=== PATIENT | male | born 1955 | race Caucasian/White ===

== ENCOUNTER 2023-10-30 13:08 | Outpatient (CLI) | payer MEDICARE, SELFPAY | END 2023-10-30 13:09 | disposition home or self-care (01) | PROVIDERS: PCP Family Medicine; Visit Provider Physician Assistant Medical | DX: I10 Essential (primary) hypertension (principal); E78.5 Hyperlipidemia, unspecified; R53.83 Other fatigue; Z11.4 Encounter for screening for human immunodeficiency virus [HIV]; B19.20 Unspecified viral hepatitis C without hepatic coma | CPT/HCPCS: 80053; 80061; 82306; 82607; 82728; 84443; 86592; 86703; 86706; 86803; 87340 ==

== ENCOUNTER 2025-02-18 20:38 | Inpatient (IN) | payer MEDICARE, SELFPAY ==
[2025-02-18] VITALS (10 sets, daily range): BP systolic 142–194; BP diastolic 98–137; PULSE 112–120; RESP 36; TEMP 38; O2SAT 90–95; BMI 29.1
--- OUTSIDE RECORDS SUMMARY | 2025-02-18 20:40 | XMS_ITS | Clinical Summary ---
Author Organization [employer] [facility] Address [address] [place] [address] Care Team Providers Care Aircraft Maintenance Supervisor Name Role Phone [facility] Pro vider Unavailable Allergies No known active allergies Medications aspirin 325 mg tabletIndicatio ns:Cerebellar stroke (HC) Take 1 Tablet (325 mg) by mouth once daily. 0 07/06/2022 Active atorvastatin (LIPITOR) 20 mg tabletIndicatio ns:Cerebellar stroke (HC) TAKE ONE TABLET BY MOUTH AT BEDTIME 90 Tablet 04/19/2023 Active metoprolol succinate (TOPROL XL) 50 mg sustained-relea se tabletIndicatio ns:Hypertension TAKE ONE TABLET BY MOUTH DAILY 90 Tablet 04/19/2023 Active Active Problems Problem Noted Date Diagnosed Date History of substance abuse 08/14/2022 Former smoker 08/14/2022 Cerebellar stroke 07/03/2022 Uncontrolled hypertension 07/03/2022 Immunizations Immunization Administration Dates Next Due COVID-19 vaccine (Moderna 100mcg/0.5mL) PF, MDV 09/08/2021 COVID-19 vaccine (Moderna 50 mcg/0.5mL) 12YO+ BIVALENT PF, MDV 08/13/2022 COVID-19 vaccine (Pfizer-BioNTech 30mcg/0.3mL) P F, MDV 01/21/2021 Hepatitis A (Adult) 11/07/2008 Hepatitis B (Adult) 11/07/2008 Td (Age >=7 Years) 09/28/2010 Tdap 08/13/2022 Family History Medical History Relation Name Comments Suicide Attempts Brother 1 Heart attack Brother 2 Good Health Father Mental illness Maternal Grandfather Good Health Maternal Grandmother Heart attack Mother Stroke Mother Alcoholism Paternal Grandfather Good Health Paternal Grandmother Relation Name Status Comments Brother 1 Brother 2 Father Maternal Grandfather Maternal Grandmother Mother Paternal Grandfather Paternal Grandmother Social History Tobacco Use Types Packs/Day Years Used Date Smoking Tobacco: Former Cigarettes Q uit: 10/2021 Passive Smoke Exposure: Past Smokeless Tobacco: Never Tobacco Cessation:Counseling Given: Not Answered Alcohol Use Standard Drinks/Week Comments Yes 0 (1 standard drink = 0.6 oz pure alcohol) 2 drinks or 3-4 beers once a week PHQ-2 Answer Date Recorded PHQ-2 TOTAL SCORE 0 08/13/2022 Social Connections Answer Date Recorded Frequency of Communication with Friends and Fami ly Not on file 08/13/2022 Sex and Gender Information Value Date Recorded Sex Assigned at Not on file Legal Sex Male 7:37 AM MANAGER DOMESTIC Gender Identity Not on file Sexual Orientation Not on file Obstetrics History Last Filed Vital Signs Vital Sign Reading Time Taken Comments Blood Pressure 132/72 08/13/2022 1:12 PM CDT Pulse 88 08/13/2022 1:12 PM CDT Temperature 36.6 C (97.8 F) 07/05/2022 9:55 AM MANAGER DOMESTIC Respiratory Rate 16 07/05/2022 9:55 AM MANAGER DOMESTIC Oxygen Saturation 98% 08/13/2022 1:12 PM CDT Inhaled Oxygen Concentration - - Weight 91.6 kg (202 lb) 08/13/2022 1:12 PM CDT Height 180.3 cm (5' 11) 08/13/2022 1:12 PM CDT Body Mass Index 28.17 08/13/2022 1:12 PM CDT Plan of Treatment Health Maintenance Due Date Last Done Comments Depression screening for age 12+ 1969 Colonoscopy through age 75 2002 Pneumococcal series for age 50+ (1 of 1 - PCV) 2007 Zoster (shingles) series for age 50+ (1 of 2) 2007 Hepatitis B series for 19+ ( 2 of 3 - 19+ 3-dose series) 12/05/2008 11/07/2008 RSV vaccine for adults or pr egnancy (1 - Risk 60-74 years 1-dose series) 2017 Medicare Wellness for age 65+ 2022 BMI (ht and wt on same day) for age 18+ 08/14/2023 08/13/2022 COVID-19 vaccine series (2024- season) 2025 08/13/2022, 09/08/2021, 01/21/2021 Influenza Vaccine (#1) 2025 Lipids for age 45-75 07/03/2027 07/03/2022 Tetanus booster 08/13/2032 08/13/2022, 09/28/2010 Hepatitis C screening for age 18-79 Completed 08/13, 08/13/2022 Procedures Procedure Name Priority Date/Time Associated Diagnosis Comments LC HCV ANTIBODY RFX TO QUANT PCR Routine 08/13/2022 2:02 PM CDT Need for hepatitis C screening test LIPID PANEL JANI 07/03/2022 4:15 AM MANAGER DOMESTIC from Last 3 Months or Most Recently Relevant to Health Maintenance Results * (ABNORMAL) LC HCV ANTIBODY RFX TO QUANT PCR (08/13/2022 2:02 PM CDT) HCV Ab Reactive(A ) Non Reactive 08/17/2022 3:08 PM CDT [facility] Blood BLOOD SPECIMEN / Unknown Venipuncture / Unknown 08/13/2022 2:02 PM CDT 08/13/2022 2:02 PM CDT Narrative [facility] - 08/17/2022 3:08 PM CDT Performed at: [address] [place] [id number] Gse Mechanic: Jack Boateng MD, Phone: [phone] us Argenis Rossi [facility] Final Re sult [facility] ([facility]) [address] [place] [id number] * Lipid Panel (07/03/2022 4:15 AM MANAGER DOMESTIC) CHOLESTEROL,TOTAL 164 100 - 199 mg/dL 07/03/2022 4:49 PM MANAGER DOMESTIC [facility] TRIGLYCERIDES 60 <150 mg/dL 07/03/2022 4:49 PM MANAGER DOMESTIC [facility] HDL CHOLESTEROL 57 >40 mg/dL 4:49 PM MANAGER DOMESTIC [facility] NON-HDL CHOLESTEROL 107 <145 mg/dl 07/03/2022 4:49 PM MANAGER DOMESTIC [facility] CHOL/HDL RATIO 2.88 <4.50 07/03/2022 4:49 PM MANAGER DOMESTIC [facility] LDL CHOLESTEROL 95 <=130 mg/dL 07/03/2022 4:49 PM [facility] VLDL CHOLESTEROL 12 <=30 mg/dL 07/03/2022 4:49 PM MANAGER DOMESTIC [facility] PROVIDER ORDERED STATUS RANDOM 07/03/2022 4:49 PM MANAGER DOMESTIC [facility] Blood BLOOD SPECIMEN / Unknown Non-Lab Venipuncture / Unknown 07/03/2022 4:15 AM MANAGER DOMESTIC 07/03/2022 4:23 AM MANAGER DOMESTIC Galo Murphy MD CHEMISTRY Final Re sult [facility] [employer] [place] ZIP [id number] [place] [phone] from Last 3 Months or Most Recently Relevant to Health Maintenance Insurance [place] MEDICARE PART A [place] ONLY MEDICARE PART B [place] ONLY MEDICARE [place] ONLY MEDICAID [place] Advance Directives * Full Code (Latest Code Status on File) Date Activated Date Inactivated Comments 07/03/2022 4:40 PM 07/05/2022 6:03 PM Question Answer Comments Code Status Discussion: Reviewed Preferences Care Teams Aircraft Maintenance Supervisor Relationship Specialty Start Date End Date Rob Terrazas PCP - General 07/03/22
--- NOTE | 2025-02-18 21:45 | ED.GENADULT ---
HPI - General Adult General Time Seen by Provider: 21:45 Date Seen: 02/18/25 Chief complaint: Back Injury/Pain Stated complaint: pain in mid back Time Seen by Provider: 02/18/25 21:45 Source: patient and RN notes reviewed Mode of arrival: ambulatory Limitations: no limitations History of Present Illness HPI narrative: This 69-year-old male is coming in with right posterolateral chest wall/back pain. It started 2 days ago. He has not noted any chills. He states he has actually been going outside cool off because he is so hot. He denied any fevers but question that given his temperature on arrival and his symptoms. He has had some cough. Has a remote history of smoking but denies any lung disease. Denies any abdominal pain, no nausea vomiting but diminished appetite. He has had anorexia for last couple days, just not hungry. No diarrhea, no urinary symptoms. His history is significant for prediabetes, alcohol abuse, hypertension, hepatitis-C and hyperlipidemia per the problem list. His current medications are an 81 mg aspirin, atorvastatin 20, metoprolol 50. I see him right after he walked from the [facility] back into his room. He becomes quite tachypneic and grunting respirations, nursing staff is in there as I walk in the room, they are getting appropriate monitoring, IV started, do review with them that I do want blood cultures. 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 - Other stimulant use, unspecified, in remission (ICD-10) History of CVA (cerebrovascular accident) ?Z86.73 - Personal history of transient ischemic attack (TIA), and cerebral infarction without residual deficits (ICD-10) Surgical History History of colonoscopy ?Z98.890 - Other specified postprocedural states (ICD-10) History of appendectomy ?Z90.49 - Acquired absence of other specified parts of digestive tract (ICD-10) Social History What is your current living situation?: I presently have a place to live Problems where you live: no known problems Problems where you live details: homeless In the past 12 months, utilities in danger of being shut off: no In past 12 months, lack of transportation kept you from medical appts, meetings, work, or getting things needed for daily living: yes In the past 12 mos, have been you worried that your food would run out before you had money to buy more?: never true In the past 12 mos, the food you bought just didn't last and you didn't have money to buy more?: never true Highest level of school completed/degree received: high school graduate Smoking Status: Never smoker How often do you have a drink containing alcohol: monthly or less AUDIT-C Alcohol total score: 1 Non-prescribed substance use: denies use Caffeine: No How often does anyone, including family, friends and others, physically hurt you: never How often does anyone, including family, friends and others, insult or talk down to you: never How often does anyone, including family, friends and others, threaten you with harm: never How often does anyone, including family, friends and others, scream or curse at you: never service: No Health Related Social Needs: transportation insecurity (Z59.82) Exam Const: Vital Signs, click to edit/add: Vital Signs - 24 hr 02/18/25 20:55 02/18/25 22:17 02/18/25 22:33 Temperature 100.4 F H Pulse Rate 120 H Pulse Rate [Pulse Oximeter] 112 H Respiratory Rate 36 H Blood Pressure 186/137 H Blood Pressure [Ri ght Upper Arm] 142/98 H Pulse Oximetry 95 90 Oxygen Delivery Me thod Room Air 02/18/25 22:45 02/18/25 22:46 02/18/25 23:00 Temperature Pulse Rate 119 H 119 H 118 H Pulse Rate [Pulse Oximeter] Respiratory Rate Blood Pressure 165/108 H Blood Pressure [Ri ght Upper Arm] Pulse Oximetry 91 91 90 Oxygen Delivery Me thod 02/18/25 23:01 02/18/25 23:32 02/18/25 23:46 Temperature Pulse Rate 118 H Pulse Rate [Pulse Oximeter] Respiratory Rate Blood Pressure 177/115 H 194/112 H 187/113 H Blood Pressure [Ri ght Upper Arm] Pulse Oximetry 93 Oxygen Delivery Me thod 02/18/25 23:59 02/19/25 00:00 02/19/25 00:01 Temperature Pulse Rate 120 H 120 H 117 H Pulse Rate [Pulse Oximeter] Respiratory Rate Blood Pressure 167/80 H Blood Pressure [Ri ght Upper Arm] Pulse Oximetry 95 94 95 Oxygen Delivery Me thod 02/19/25 00:02 02/19/25 00:02 02/19/25 00:02 Temperature Pulse Rate 117 H 117 H 117 H Pulse Rate [Pulse Oximeter] Respiratory Rate 38 H 38 H 38 H Blood Pressure 186/134 H 186/134 H 186/134 H Blood Pressure [Ri ght Upper Arm] Pulse Oximetry 94 94 94 Oxygen Delivery Me thod 02/19/25 00:03 02/19/25 00:15 02/19/25 00:17 Temperature Pulse Rate 116 H 119 H Pulse Rate [Pulse Oximeter] 106 H Respiratory Rate 44 H 47 H 36 H Blood Pressure Blood Pressure [Ri ght Upper Arm] 135/91 H Pulse Oximetry 94 93 94 Oxygen Delivery Me thod Room Air 02/19/25 00:17 02/19/25 00:50 02/19/25 00:53 Temperature Pulse Rate 109 H 99 Pulse Rate [Pulse Oximeter] Respiratory Rate 25 H 38 H 47 H Blood Pressure 135/91 H 158/112 H Blood Pressure [Ri ght Upper Arm] Pulse Oximetry 94 94 Oxygen Delivery Me thod 02/19/25 01:00 02/19/25 01:01 02/19/25 01:01 Temperature Pulse Rate 99 101 H 101 H Pulse Rate [Pulse Oximeter] Respiratory Rate 45 H 43 H 43 H Blood Pressure 148/84 H 148/84 H Blood Pressure [Ri ght Upper Arm] Pulse Oximetry 94 94 94 Oxygen Delivery Me thod 02/19/25 01:01 02/19/25 01:01 02/19/25 01:15 Temperature Pulse Rate 101 H 101 H 98 Pulse Rate [Pulse Oximeter] Respiratory Rate 43 H 43 H 41 H Blood Pressure 148/84 H 148/84 H Blood Pressure [Ri ght Upper Arm] Pulse Oximetry 94 94 95 Oxygen Delivery Me thod 02/19/25 01:17 02/19/25 01:30 02/19/25 01:32 Temperature Pulse Rate 99 Pulse Rate [Pulse Oximeter] Respiratory Rate 42 H 23 43 H Blood Pressure 140/92 H 139/106 H Blood Pressure [Ri ght Upper Arm] Pulse Oximetry 95 Oxygen Delivery Me thod 02/19/25 01:36 Temperature 99.2 F Pulse Rate Pulse Rate [Pulse Oximeter] Respiratory Rate Blood Pressure Blood Pressure [Ri ght Upper Arm] Pulse Oximetry Oxygen Delivery Me thod Patient is alert and interactive but tachypneic, grunting respirations. His respiratory rate is 52 when I count. We were unable to get peripheral pulse oximetry, his hands and fingers are cool but dry. There is no cyanosis this nail beds. A nasal pulse oximeter is showing 95% on room air. He is tachycardic. He was febrile on presentation. I do question if I hear crackles posteriorly on his right lower lung field, air entry is good elsewhere but he is tachypneic. I do not hear any wheezing or crackles elsewhere. No accessory muscle use but does seem to have maybe some paradoxical abdominal movement in sounds grunting he. CV is fast for regular, no murmur noted. Abdomen is soft, nontender, no organomegaly, no rebound or guarding. No significant lower extremity edema. His sclerae are clear, conjugate gaze, symmetrical facial function. No hoarseness to his speech but speaking in short phrases. Documenting provider has reviewed patient's vital signs: yes Course Course ED Course: This patient is febrile, is having right posterolateral chest wall pain and tachypneic. I do wonder about pneumonia. I have asked for portable chest x-ray. Other considerations would be thromboembolic disease with pulmonary emboli. He is tachycardic but sounds regular, do not think there is arrhythmia. Will get a full complement of labs including D-dimer, troponin in case there is any evidence of cardiac strain. Obtain EKG with a troponin, rule out ischemic disease. Does not seem to have any abdominal symptoms. May need to do chest imaging. Given his history of hepatitis-C and alcohol use, will get an alcohol level, liver functions and functional liver studies with PT, PTT. He is not appearing encephalopathic at this time. Reevaluation(s) Time of Reevaluation #1: 22:20 Reevaluation #1: Have reviewed patient's EKG. He is tachycardic now at 120. Have subsequently ordered sepsis fluid orders per ideal body weight. His chest x-ray is showing bibasilar opacities, nonspecific. Will await his other labs, see what his D-dimer and white count are. I do question pneumonia and while other etiologies still have high consideration, do think this patient should start antibiotics. He has no known drug allergies, will initiate Zosyn to start. Time of Reevaluation #2: 23:05 Reevaluation #2: His D-dimer has come back elevated at 11.24. Will be getting chest CT PE protocol, he is getting IV fluids. Despite his creatinine of 1.9, do feel that we really need this study as there is high clinical suspicion of underlying pulmonary embolus. This will also help us differentiate complicating infection or pneumonia. Time of Reevaluation #3: 00:28 Reevaluation #3: Have reviewed with patient that he has definite pulmonary emboli in his right lung and probable pulmonary infarcts. Do think with his fever and possible inflammatory change that there could be secondary infection. Will continue Zosyn at this time. We will try something as simple as Tylenol for his discomfort, he really did not want anything but will give him something as he does seem uncomfortable. Also reviewed that there is a possible dissection. He will be going for further imaging. We will initiate heparin, have discussed this. Will be doing the PE protocol for heparin. I have also ordered ultrasounds of his lower extremities to see if there is any further clot burden. Additional Reevaluation(s): 1:02 a.m.: Have stopped the sepsis dose fluids, patient does need hydration but if there is dissection, do not need that level of fluids pressing into the vasculature. I have ordered 100 mL of normal saline maintenance for the time being. Radiology is looking at his vascular study for AAA. Nursing staff updated me that patient is on oxygen. I was in stitching another patient when his pulse oximetry went to 88% with a good waveform. He is on 2 L nasal cannula with oxygen saturations low to mid 90s. 2:04 a.m.: Patient is having ongoing pain. Will initiate fentanyl. Consultations Consultation #1: Did speak with vascular surgery and the engineering writer at [facility]. They are looking at the images as I talked to them. They really are not seeing necessary dissection. They do want me to go ahead and proceed with the aortic dissection protocol. They do request I heparinize as they can absolutely see the pulmonary emboli. If he does have dissection, will need to work on blood pressure and pulse control as well. We will push these images to them and contact him back. Need to make sure that this patient has pulses at this time in case of underlying dissection. 1:36 a.m.: Have spoken with the engineering writer as well as the vascular surgeon at [facility] Dr. Harrington. She was able to see his images that we had push through. She states this is either of thrombosed dissection or intramural thrombus but is not acute. Patient will need outpatient follow-up. He does not need transfer as far as a vascular surgery standpoint. I did subsequently talk to the engineering writer, he agrees with management here. He does not feel that this patient needs to transfer. In the interim the preliminary report of his bilateral Dopplers is that there is no thrombus. Will page the hospitalist here. Time: 00:13 Consultation #2: Have reviewed the case with the overnight hospitalist Dr. Nielsen. We went over all the details, he does accept. I did put the order for the echo in which hopefully can happen later today. Time: 01:57 Vital Signs Vital signs: Initial Vital Signs Temperature 100.4 F H 02/18/25 20:55 Temperature Source Temporal Artery Scan 02/18/25 20:55 Pulse Rate 112 H 02/18/25 20:55 Respiratory Rate 36 H 02/18/25 20:55 Blood Pressure 142/98 H 02/18/25 20:55 Blood Pressure Mean 112 H 02/18/25 20:55 Blood Pressure Position Sitting 02/18/25 20:55 Pulse Oximetry 95 02/18/25 20:55 Oxygen Delivery Method Room Air 02/18/25 20:55 Vital Signs Temperature 100.4 F H 02/18/25 20:55 Pulse Rate 112 H 02/18/25 20:55 Respiratory Rate 36 H 02/18/25 20:55 Blood Pressure 142/98 H 02/18/25 20:55 Pulse Oximetry 95 02/18/25 20:55 Oxygen Delivery Method Room Air 02/18/25 20:55 Temperature 97.5 F L 02/19/25 11:00 Pulse Rate 81 02/19/25 11:00 Respiratory Rate 24 02/19/25 14:16 Blood Pressure 136/81 02/19/25 11:00 Pulse Oximetry 90 02/19/25 14:16 Oxygen Delivery Method Nasal Cannula 02/19/25 14:16 Oxygen Flow Rate 2 02/19/25 14:16 Medications Administered Medications: Discontinued Medications Generic Name Dose Route Start Last Admin Trade Name Freq PRN Reason Stop Dose Admin Acetaminophen 1,000 mg 02/19/25 00:55 02/19/25 01:36 Acetaminophen 500 Mg Tablet PO 02/19/25 00:56 1,000 mg ONCE ONE Administration Albuterol/Ipratropium 1 neb 02/19/25 13:56 02/19/25 14:13 Iprat-Albut 0.5-2.5 Mg/3 Ml Neb IH 1 neb Q2H PRN Administration Aspirin 81 mg 02/19/25 09:00 02/19/25 08:36 Aspirin 81 Mg Tablet Ec PO 81 mg DAILY YELENA Administration Fentanyl 25 mcg 02/19/25 02:01 02/19/25 05:52 Fentanyl 100 Mcg/2 Ml Inj IVP 25 mcg Q2H PRN Administration Pain Heparin Sodium (Porcine) 7,600 unit 02/18/25 23:54 02/19/25 00:32 Heparin 5,000 Unit/0.5 Ml Inj 80 unit/kg (7600 unit) 02/18/25 23:55 7,600 unit IVP Administration ONCE ONE Heparin Sodium (Porcine) 2,800 unit 02/19/25 13:32 02/19/25 14:13 Heparin 5,000 Unit/0.5 Ml Inj 30 unit/kg (2800 unit) 02/19/25 13:33 2,800 unit IVP Administration ONCE ONE Sodium Chloride 2,259 mls @ 753 mls/hr 02/18/25 22:30 02/19/25 03:40 0.9 % Sodium Chloride 1000 Ml 30 ml/kg infuse over 3 hr (2259 ml) 02/19/25 01:29 Infused IV Infusion .Q3H YELENA Piperacillin Sod/Tazobactam 100 mls @ 200 mls/hr 02/18/25 22:22 02/18/25 23:05 Sod 3.375 gm/ Sodium Chloride IVPB 02/18/25 22:23 Infused ONCE ONE Infusion Heparin Sodium/Dextrose 25,000 unit in 500 mls @ 0 mls/hr 02/18/25 23:45 02/19/25 14:13 Heparin IV 1,100 unit/hr .Q0M YELENA 22 mls/hr Protocol Titration Per Protocol Sodium Chloride 1,000 mls @ 100 mls/hr 02/19/25 01:00 02/19/25 08:08 0.9 % Sodium Chloride 1000 Ml IV 100 mls/hr .Q10H [facility] Administration Ceftriaxone Sodium 2 gm/ 100 mls @ 200 mls/hr 02/19/25 07:00 02/19/25 08:45 Sodium Chloride IVPB Infused Q24H [facility] Infusion Azithromycin 500 mg/ Sodium 255 mls @ 255 mls/hr 02/19/25 08:00 02/19/25 09:40 Chloride IVPB Infused Q24H [facility] Infusion Insulin Aspart 0 unit 02/19/25 07:30 02/19/25 12:34 Insulin Aspart 100 Unit/Ml SUBCUT Not Given ACHS [facility] Protocol Labetalol HCl 5 mg 02/19/25 00:04 02/19/25 00:13 Labetalol Hcl 5 Mg/Ml Inj IVP 02/19/25 00:05 5 mg ONCE ONE Administration Oxycodone HCl 2.5 - 5 mg 02/19/25 08:26 02/19/25 12:54 Oxycodone 5 Mg Tablet PO 5 mg Q4H PRN Administration Sodium Chloride 5 ml 02/19/25 09:00 02/19/25 08:36 Sodium Chloride 0.9 % (Flush) 10 Ml Syringe IVF Not Given BID [facility] Medical Decision Making Lab Data Lab results reviewed: Yes I reviewed the patient's lab results Labs: Lab Results 02/18/25 02/19/25 Range/Units 22:03 00:15 WBC 13.70 H (4.50-11.00) K/uL RBC 5.57 (4.30-5.90) m/uL Hgb 18.0 H (13.5-17.5) gm/dL Hct 52.2 (37.0-53.0) % MCV 94 (80-100) fL MCH 32 (26-34) pg MCHC 35 (32-36) gm/dL RDW Coeff of Malathi 12.4 (11.5-15.5) % Plt Count 261 (140-440) K/uL Neut % (Auto) 72.4 H (42.0-72.0) % Lymph % (Auto) 16.8 L (20-44) % Kane % (Auto) 10.6 (0.0-11.0) % Eos % (Auto) 0.0 (0.0-7.0) % Baso % (Auto) 0.1 (0.0-3.0) % Neut # (Auto) 9.90 H (1.7-7.0) K/uL Lymph # (Auto) 2.30 (0.90-2.90) K/uL Kane # (Auto) 1.50 H (0.00-0.90) K/UL Eos # (Auto) 0.00 (0.00-0.50) K/uL Baso # (Auto) 0.00 (0.00-0.30) K/uL Abs Immat Gran (auto) 0.00 (0.00-0.30) K/uL Imm/Tot Granulo (auto) 0.1 % INR 1.03 (0.91-1.10) APTT 27 (23-33) Seconds D-Dimer Quant (PE/DVT) 11.24 H (0.00-0.50) ug/ml VBG pH 7.330 (7.32-7.43) VBG pCO2 46 (40-50) mmHG VBG pO2 < 30.1 (25-47) mmHG VBG HCO3 24 (21-28) mmol/L Sodium 139 (135-149) mmol/L Potassium 4.5 (3.6-5.1) mmol/L Chloride 103 (96-114) mmol/L Carbon Dioxide 24 (20-32) mmol/L Anion Gap 12 (7-15) mEq/L BUN 19 (7-30) mg/dL Creatinine 1.9 H (0.5-1.5) mg/dL Estimated Creat Clear 40.18 Estimated GFR 38 ml/min Glucose 178 H (60-115) mg/dL Lactate 2.9 H (0.5-1.9) mmol/L Calcium 9.4 (8.4-10.6) mg/dL Magnesium 1.9 (1.5-2.6) mg/dL Total Bilirubin 1.6 H (0.1-1.5) mg/dL Direct Bilirubin 0.4 (0.0-0.5) mg/dL AST 41 H (12-35) U/L ALT 46 (4-50) U/L Alkaline Phosphatase 111 (40-150) U/L Troponin I < 0.01 (0.01-0.04) ng/mL C-Reactive Protein 13.7 H (0.5-1.0) mg/dL NT-Pro-B Natriuret Pep 389 H (See Note) pg/mL Total Protein 9.4 H (6.0-8.3) g/dL Albumin 4.6 (3.3-5.0) g/dL Lipase 75 (23-300) U/L Urine Color Yellow (Yellow) Urine Appearance Clear (Clear) Urine pH 5.5 (5.0-8.5) Ur Specific [place] 1.010 (1.000-1.030) Urine Protein 1+ A (Negative) Urine Glucose (UA) Negative (Negative) Urine Ketones Negative (Negative) Urine Blood 1+ A (Negative) Urine Nitrite Negative (Negative) Urine Bilirubin Negative (Negative) Urine Urobilinogen 1.0 (0.2-1.0) Ur Leukocyte Esterase Negative (Negative) Urine RBC 0-2 (0-2) Urine WBC 0-2 (0-5) Ur Squamous Epith Cells None (None-Few) Urine Bacteria None (None) Fine Granular Casts Few A (None) Urine Opiates Screen Negative (Negative) Ur Buprenorphine Scrn Negative (Negative) Ur Oxycodone Screen Negative (Negative) Urine Methadone Screen Negative (Negative) Ur Barbiturates Screen Negative (Negative) U Tricyclic Antidepress Negative (Negative) Ur Phencyclidine Scrn Negative (Negative) Ur Amphetamines Screen POSITIVE A (Negative) U Methamphetamines Scrn POSITIVE A (Negative) U Benzodiazepines Scrn Negative (Negative) Urine Cocaine Screen Negative (Negative) U Marijuana (THC) Screen Negative (Negative) Ur Drug Screen Comment See Note Ethyl Alcohol 0.03 (0.01-0.03) % SARS-CoV-2 (PCR) Negative SARS-CoV-2 (Negative) Influenza Type A (PCR) Negative PCR FLU A (Negative) Influenza Type B (PCR) Negative PCR FLU B (Negative) RSV (PCR) Negative PCR RSV (Negative) Imaging Data Chest x-ray: Attestation: I have reviewed the pertinent imaging results. My impression: I do question if I see right lower lobe infiltrate. Chest is not seem like there is good inflation overall. Wait radiology over-read. Radiologist's impression: Patient: JOVAN LEE Facility:?[facility] Patient ID:?[id number] Site Patient ID:?[id number]. Site :?1955 Study:?XRay-Chest PORTABLE-02/18/2025 10:00:20 PM Ordering Physician:?Pj Rodarte Final Report: INDICATION: Mid back pain. TECHNIQUE: Chest 1 view. COMPARISON: None. FINDINGS: Cardiovascular and mediastinum: Cardiomediastinal silhouette is within normal limits. Lungs and pleural spaces: Lung volumes are low. Bibasilar opacities. No large pleural effusion. No pneumothorax. Bones and soft tissues: No significant findings. IMPRESSION: Bibasilar opacities, nonspecific. Findings may represent atelectasis, aspiration, or pneumonia. Dictated by Manuel Moss MD @ 02/18/2025 10:13:49 PM (Electronic Signature) CT scan - chest: Attestation: I have reviewed the pertinent imaging results. Radiologist's impression: [facility]:?[facility] Patient ID:?[id number] Site Patient ID:?[id number]. Site :?1955 Study:?CT-Chest Angio W/95CC [id number] PE PROTOCOL-02/18/2025 11:27:13 PM Ordering Physician:?Pj Rodarte Final Report: INDICATION: Right pleuritic chest pain. TECHNIQUE: CTA chest PE was acquired with 95 cc Isovue 370 IV contrast. Multiplanar and MIP reconstructions were performed on a separate independent workstation with concurrent supervision of the image post processing in order to further delineate the angiographic anatomy for accurate interpretation. COMPARISON: None. FINDINGS: Heart and vasculature: Contrast opacification of the pulmonary arterial tree is adequate. Extensive filling defects throughout the right-sided pulmonary arteries including in the right pulmonary artery. Mild cardiomegaly. Flattening of the interventricular septum. Evaluation of the thoracic aorta is limited by suboptimal contrast opacification but there is suspected underlying type B dissection. Evaluation limited by motion artifact but there is likely fusiform dilatation of the aortic sinus and ascending thoracic aorta. Main pulmonary artery is normal in caliber. Coronary artery calcifications. Lungs and pleura: Bibasilar atelectasis. Right middle and lower lobe basilar opacities. Trace right pleural effusion. No pneumothorax. Lymph nodes/mediastinum: No mediastinal, hilar, or axillary adenopathy. Thyroid gland is unremarkable. Chest wall: No masses. Upper abdomen: Hepatic and splenic calcified granulomas. Small right renal calculus. Bones: Unremarkable for age. IMPRESSION: 1. Extensive right-sided pulmonary emboli with evidence of right heart strain. 2. Evaluation limited by suboptimal contrast opacification of the thoracic aorta but there is high suspicion for underlying type B dissection. 3. Findings were discussed with Dr. Guajardo by Dr. Moss on 02/18/2025 at 11:56 PM. 4. Evaluation limited by motion artifact but there is likely fusiform dilatation of the aortic sinus and ascending thoracic aorta. 5. Right middle and lower lobe basilar opacities, which may represent developing pulmonary infarcts given extensive pulmonary emboli. An infectious/inflammatory process would have a similar appearance. Please note that all CT scans at this facility use dose modulation, iterative reconstruction, and/or weight-based dosing when appropriate to reduce radiation dose to as low as reasonably achievable. Dictated by Manuel Moss MD @ 02/19/2025 12:01:08 AM (Electronic Signature) CT- Other: Attestation: I have reviewed the pertinent imaging results. Radiologist's impression: Patient: JOVAN LEE Facility:?[facility] Patient ID:?[id number] Site Patient ID:?[id number]. Site :?1955 Study:?CT-Abdomen/Pelvis Angio 103CC ISOVUE 370-02/19/2025 12:45:59 AM Ordering Physician:Kathryn Rodarte Final Report: INDICATION: Aortic dissection. TECHNIQUE: CTA abdomen and pelvis acquired with 103 cc Isovue 370 IV contrast. Multiplanar and MIP reconstructions were performed on a separate independent workstation with concurrent supervision of the image post processing in order to further delineate the angiographic anatomy for accurate interpretation. COMPARISON: CTA chest PE 02/18/2025. FINDINGS: Lower chest: Please refer to prior CTA chest PE. Liver: Normal in size and attenuation. Few calcified granulomas. Gallbladder and bile ducts: Unremarkable. No stones or inflammation. No biliary ductal dilatation. Spleen: Normal in size. Scattered calcified granulomas. Adrenal glands: Unremarkable. No nodules. Pancreas: Unremarkable. No mass or inflammation. Kidneys: Subcentimeter hypodense foci are too small to accurately characterize. No hydronephrosis. GI tract: Distal colonic diverticulosis without evidence of diverticulitis. No evidence of obstruction. Appendix is not visualized, however there is no evidence of right lower quadrant inflammatory stranding. Lymph nodes: No lymphadenopathy. 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 Celiac trunk, SMA, LEX, and bilateral renal arteries arise from the true lumen and are patent. Omentum/Peritoneum/Abdominal Wall: Unremarkable. No free air or significant free fluid. Pelvis: Unremarkable. Bones: Degenerative changes. IMPRESSION: 1. 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 2. Otherwise no acute abdominal or pelvic abnormality. 3. Other incidental findings as above. Please note that all CT scans at this facility use dose modulation, iterative reconstruction, and/or weight-based dosing when appropriate to reduce radiation dose to as low as reasonably achievable. Dictated by Manuel Moss MD @ 02/19/2025 1:19:52 AM (Electronic Signature) Venous US: Attestation: I have reviewed the pertinent imaging results. Radiologist's impression: Patient: JOVAN LEE Facility:?[facility] Patient ID:?[id number] Site Patient ID:?[id number]. Site :?[id number] Study:?US-Extremity Bilateral LEV-02/19/2025 1:21:36 AM Ordering Physician:Kathryn Rodarte Final Report: INDICATION: Pulmonary embolism. TECHNIQUE: Ultrasound venous duplex bilateral lower extremity. Compression venous exam was performed using reyes-scale, color Doppler, and spectral Doppler imaging. COMPARISON: None. FINDINGS: Deep veins: Sonographic imaging demonstrates the bilateral common femoral, deep femoral, superficial femoral, popliteal, and posterior tibial veins to be fully compressible with normal color Doppler blood flow. Superficial veins: Greater saphenous vein is fully compressible. No popliteal cyst. IMPRESSION: No sign of deep venous thrombosis in the bilateral lower extremities. Dictated by Manuel Moss MD @ 02/19/2025 1:46:34 AM (Electronic Signature) ECG Data Attestation: I personally reviewed and interpreted this ECG as follows: (Sinus tachycardia, 120 beats per minute. Inferior Q-waves without any ST segment change or T-wave changes. Poor R-wave progression throughout the anterior precordial leads but no acute ST or T-wave changes. Might have some peaking of his T-waves.) Prior ECG tracings: not available for review Discharge Plan Discharge Clinical Impression: Pulmonary embolism and infarction, Hypoxia Patient Disposition: Admitted As Inpatient Procedures ABG Interpretation ABG Results: 02/18/25 22:03 VBG pH 7.330 VBG pCO2 46 VBG pO2 < 30.1 VBG HCO3 24
--- NOTE | 2025-02-18 21:51 | CRLHL7_ITS ---
For Patients: As a result of the Century Cures Act, medical imaging exams and procedure reports are released immediately into your electronic medical record. You may view this report before your referring provider. If you have questions, please contact your health care provider. INDICATION: Mid back pain. TECHNIQUE: Chest 1 view. COMPARISON: None. FINDINGS: Cardiovascular and mediastinum: Cardiomediastinal silhouette is within normal limits. Lungs and pleural spaces: Lung volumes are low. Bibasilar opacities. No large pleural effusion. No pneumothorax. Bones and soft tissues: No significant findings. IMPRESSION: Bibasilar opacities, nonspecific. Findings may represent atelectasis, aspiration, or pneumonia. Dictated by Manuel Moss MD @ 02/18/2025 10:13:49 PM (Electronically Signed)
[2025-02-18 22:05] LABS: HCO3 VBG 24 mmol/L (21-28); Lactate* 2.9 mmol/L (0.5-1.9); PCO2 VBG 46 mmHG (40-50); PO2 VBG < 30.1 mmHG (25-47); pH VBG 7.330 (7.32-7.43)
[2025-02-18 22:24] LABS: Hematocrit* 52.2 % (37.0-53.0); Hemoglobin* 18.0 gm/dL (13.5-17.5); Immature Granulocytes Pct Auto 0.1 %; Lymphocytes Absolute Auto 2.30 K/uL (0.90-2.90); Mean Corpuscular HGB Conc 35 gm/dL (32-36); Mean Corpuscular Hemoglobin 32 pg (26-34); Mean Corpuscular Volume 94 fL (80-100); RDW Coefficient of Variation % 12.4 % (11.5-15.5); Red Blood Count* 5.57 m/uL (4.30-5.90); White Blood Count* 13.70 K/uL (4.50-11.00)
[2025-02-18 22:26] LABS: Immature Granulocytes Abs Auto 0.00 K/uL (0.00-0.30); Slide Review Reflex No
[2025-02-18 22:33] LABS: Albumin* 4.6 g/dL (3.3-5.0); Chloride* 103 mmol/L (96-114); Potassium* 4.5 mmol/L (3.6-5.1); Sodium* 139 mmol/L (135-149)
[2025-02-18] MEDS: PIPERACILLIN/TAZOBACTAM 3.375 GM in 0.9 % SODIUM CHLORIDE Mini-bag 100 ML IVPB (22:34)
[2025-02-18 22:36] LABS: Alanine Aminotransferase* 46 U/L (4-50); Alkaline Phosphatase* 111 U/L (40-150); Anion Gap 12 mEq/L (7-15); Aspartate Amino Transferase* 41 U/L (12-35); Bilirubin Direct* 0.4 mg/dL (0.0-0.5); Bilirubin Total* 1.6 mg/dL (0.1-1.5); Blood Urea Nitrogen* 19 mg/dL (7-30); Calcium* 9.4 mg/dL (8.4-10.6); Carbon Dioxide* 24 mmol/L (20-32); Creatinine* 1.9 mg/dL (0.5-1.5); Est. Creatinine Clearance* 40.18; Estimated Glomerular Filt Rate 38 ml/min; Glucose* 178 mg/dL (60-115); Total Protein* 9.4 g/dL (6.0-8.3)
[2025-02-18 22:37] LABS: Ethanol* 0.03 % (0.01-0.03)
[2025-02-18 22:42] LABS: INR 1.03 (0.91-1.10); Prothrombin Time 14.3 Seconds
[2025-02-18 22:46] LABS: PCR FLU A Negative PCR FLU A (Negative); PCR FLU B Negative PCR FLU B (Negative); PCR RSV Negative PCR RSV (Negative); SARS PCR* Negative SARS-CoV-2 (Negative)
[2025-02-18 22:48] LABS: NT Pro B Type NatriureticPept* 389 pg/mL (See Note)
[2025-02-18] MEDS: SODIUM CHLORIDE 753 ML IV (22:51)
[2025-02-18 22:53] LABS: D Dimer Quantitative* 11.24 ug/ml (0.00-0.50)
--- NOTE | 2025-02-18 23:04 | CRLHL7_ITS ---
For Patients: As a result of the 21st Century Cures Act, medical imaging exams and procedure reports are released immediately into your electronic medical record. You may view this report before your referring provider. If you have questions, please contact your health care provider. INDICATION: Right pleuritic chest pain. TECHNIQUE: CTA chest PE was acquired with 95 cc Isovue 370 IV contrast. Multiplanar and MIP reconstructions were performed on a separate independent workstation with concurrent supervision of the image post processing in order to further delineate the angiographic anatomy for accurate interpretation. COMPARISON: None. FINDINGS: Heart and vasculature: Contrast opacification of the pulmonary arterial tree is adequate. Extensive filling defects throughout the right-sided pulmonary arteries including in the right pulmonary artery. Mild cardiomegaly. Flattening of the interventricular septum. Evaluation of the thoracic aorta is limited by suboptimal contrast opacification but there is suspected underlying type B dissection. Evaluation limited by motion artifact but there is likely fusiform dilatation of the aortic sinus and ascending thoracic aorta. Main pulmonary artery is normal in caliber. Coronary artery calcifications. Lungs and pleura: Bibasilar atelectasis. Right middle and lower lobe basilar opacities. Trace right pleural effusion. No pneumothorax. Lymph nodes/mediastinum: No mediastinal, hilar, or axillary adenopathy. Thyroid gland is unremarkable. Chest wall: No masses. Upper abdomen: Hepatic and splenic calcified granulomas. Small right renal calculus. Bones: Unremarkable for age. IMPRESSION: 1. Extensive right-sided pulmonary emboli with evidence of right heart strain. 2. Evaluation limited by suboptimal contrast opacification of the thoracic aorta but there is high suspicion for underlying type B dissection. 3. Findings were discussed with Dr. Guajardo by Dr. Moss on 02/18/2025 at 11:56 PM. 4. Evaluation limited by motion artifact but there is likely fusiform dilatation of the aortic sinus and ascending thoracic aorta. 5. Right middle and lower lobe basilar opacities, which may represent developing pulmonary infarcts given extensive pulmonary emboli. An infectious/inflammatory process would have a similar appearance. Please note that all CT scans at this facility use dose modulation, iterative reconstruction, and/or weight-based dosing when appropriate to reduce radiation dose to as low as reasonably achievable. Dictated by Manuel Moss MD @ 02/19/2025 12:01:08 AM (Electronically Signed)
[2025-02-19] VITALS (28 sets, daily range): BP systolic 103–186; BP diastolic 74–134; PULSE 81–120; RESP 18–49; TEMP 36.3–37.3; O2SAT 90–98
[2025-02-19] MEDS: LABETALOL HCL 5 MG/ML inj IVP (00:13)
--- NOTE | 2025-02-19 00:17 | CRLHL7_ITS ---
For Patients: As a result of the Century Cures Act, medical imaging exams and procedure reports are released immediately into your electronic medical record. You may view this report before your referring provider. If you have questions, please contact your health care provider. INDICATION: Aortic dissection. TECHNIQUE: CTA abdomen and pelvis acquired with 103 cc Isovue 370 IV contrast. Multiplanar and MIP reconstructions were performed on a separate independent workstation with concurrent supervision of the image post processing in order to further delineate the angiographic anatomy for accurate interpretation. COMPARISON: CTA chest PE 02/18/2025. FINDINGS: Lower chest: Please refer to prior CTA chest PE. Liver: Normal in size and attenuation. Few calcified granulomas. Gallbladder and bile ducts: Unremarkable. No stones or inflammation. No biliary ductal dilatation. Spleen: Normal in size. Scattered calcified granulomas. Adrenal glands: Unremarkable. No nodules. Pancreas: Unremarkable. No mass or inflammation. Kidneys: Subcentimeter hypodense foci are too small to accurately characterize. No hydronephrosis. GI tract: Distal colonic diverticulosis without evidence of diverticulitis. No evidence of obstruction. Appendix is not visualized, however there is no evidence of right lower quadrant inflammatory stranding. Lymph nodes: No lymphadenopathy. 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 Celiac trunk, SMA, LEX, and bilateral renal arteries arise from the true lumen and are patent. Omentum/Peritoneum/Abdominal Wall: Unremarkable. No free air or significant free fluid. Pelvis: Unremarkable. Bones: Degenerative changes. IMPRESSION: 1. 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 2. Otherwise no acute abdominal or pelvic abnormality. 3. Other incidental findings as above. Please note that all CT scans at this facility use dose modulation, iterative reconstruction, and/or weight-based dosing when appropriate to reduce radiation dose to as low as reasonably achievable. Dictated by Manuel Moss MD @ 02/19/2025 1:19:52 AM (Electronically Signed)
[2025-02-19] MEDS: HEPARIN 5,000 UNIT/0.5 ML INJ 7600 UNIT IVP (00:32)
[2025-02-19] MEDS: HEPARIN 25,000 UNIT/500 ML BAG 18 UNIT IV (00:35)
[2025-02-19 00:36] LABS: Appearance Urine Clear (Clear)
--- NOTE | 2025-02-19 00:55 | ED.NURSE ---
US in room
[2025-02-19] MEDS: ACETAMINOPHEN 500 MG TABLET 1000 MG PO (01:36)
--- NOTE | 2025-02-19 03:31 | ED.NURSE ---
report given to MS RN. PT taken to floor via cart.
--- NOTE | 2025-02-19 04:53 | W.PM.TELEH&P ---
Telehealth- H&P: HPI History of Present Illness Date Seen: 02/19/25 Chief complaint: pain in mid back Narrative: Myron Rivas is seen as an Interactive Telehealth visit. Myron Rivas is a 69 year old male who has a history of alcohol use disorder, hypertension, chronic hepatitis C, hyperlipidemia and prediabetes. He also says he had a stroke in the past. He is supposed to be on aspirin atorvastatin and metoprolol but says he is only taking aspirin currently. The patient has been having right upper back pain for the past 2 days. The pain is worse when he takes a deep breath. He does not think he has any fever. No chills no cough or cold. No headache or sore throat. He has not been having any chest pain, abdominal pain, nausea, vomiting or diarrhea. He has no lower back pain. He has been short of breath recently including at rest but worse with exertion. Because he was not getting any better after 2 days he came to the emergency room. In the emergency room his temperature was 100.4 ?F heart rate 112 respiratory rate 36 blood pressure 142/98 ox saturation was 95% on room air at rest. In the emergency room he was very tachypneic when walking around and his oxygen saturation dropped. Respiratory rate was up to 52/min. Rales were heard posteriorly in the right lower lung field otherwise lungs were clear. White blood cell count 13.7 thousand hemoglobin 18 g D-dimer 11 sodium 139 potassium 4.5 BUN 19 creatinine 1.9 total bilirubin 1.6 AST 41 ALT 46 troponin negative CRP 13.7 BNP 389 total protein 9.4 albumin 4.6 lipase 75. UA unremarkable. COVID influenza RSV negative. Chest x-ray showed bibasilar opacities which could be infiltrate or atelectasis or effusions. CT chest PE study showed extensive right sided pulmonary emboli with right heart strain as well as right middle and right lower lobe opacities likely due to developing pulmonary infarcts. 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 The ER physician discussed the case with the on-call water softener service supervisor and vascular surgeon. They recommended that the patient be treated for his pulmonary emboli with standard anticoagulation and that the abdominal aortic aneurysm was a chronic issue and could be addressed after discharge. The patient was started on IV heparin and is being admitted to the hospital. He is not requiring supplemental oxygen at rest. He still does have pleuritic pain despite receiving IV fentanyl in the ER. He denies any history of venous thromboembolism. He has not been on any long car or airplane trips. 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 - Other stimulant use, unspecified, in remission (ICD-10) History of CVA (cerebrovascular accident) ?Z86.73 - Personal history of transient ischemic attack (TIA), and cerebral infarction without residual deficits (ICD-10) Surgical History History of colonoscopy ?Z98.890 - Other specified postprocedural states (ICD-10) History of appendectomy ?Z90.49 - Acquired absence of other specified parts of digestive tract (ICD-10) Social History What is your current living situation?: I presently have a place to live Problems where you live: no known problems Problems where you live details: homeless In the past 12 months, utilities in danger of being shut off: no In past 12 months, lack of transportation kept you from medical appts, meetings, work, or getting things needed for daily living: yes In the past 12 mos, have been you worried that your food would run out before you had money to buy more?: never true In the past 12 mos, the food you bought just didn't last and you didn't have money to buy more?: never true Highest level of school completed/degree received: high school graduate Smoking Status: Never smoker How often do you have a drink containing alcohol: monthly or less AUDIT-C Alcohol total score: 1 Non-prescribed substance use: denies use Caffeine: No How often does anyone, including family, friends and others, physically hurt you: never How often does anyone, including family, friends and others, insult or talk down to you: never How often does anyone, including family, friends and others, threaten you with harm: never How often does anyone, including family, friends and others, scream or curse at you: never service: No Health Related Social Needs: transportation insecurity (Z59.82) Meds Home Medications and Allergies Home Medications ?Medication ?Instructions ?Recorded ?Confirmed ?Type aspirin 81 mg tablet,delayed 81 mg PO QDAY 10/30/23 02/18/25 History release atorvastatin 20 mg tablet 20 mg PO QDAY #90 tabs 10/30/23 10/30/23 Rx metoprolol succinate 50 mg 50 mg PO QDAY #90 tabs 10/30/23 10/30/23 Rx tablet,extended release 24 hr Allergies Allergy/AdvReac Type Severity Reaction Status Date / Time No Known Drug Allergies Allergy Verified 02/19/25 04:03 Exam Narrative Exam Narrative: Physical Exam GENERAL: ?vital signs reviewed, well developed and nourished, in no distress HEART: Regular rate and rhythm without any rubs, murmurs, or gallops. LUNGS: Clear to auscultation bilaterally with good air movement throughout ABDOMEN: Observation from nurse assisted exam, abdomen appears soft, nontender, and nondistended with Positive bowel sounds noted. EXTREMITIES: Strength and sensation is observed to be grossly within normal limits in the upper and lower extremities.? No focal strength deficit is observed. SKIN:? Observed warm and dry with color normal Const Vital Signs, click to edit/add: Vital Signs - 24 hr 02/18/25 20:55 02/18/25 22:17 02/18/25 22:33 Temperature 100.4 F H Pulse Rate 120 H Pulse Rate [Pulse Oximeter] 112 H Respiratory Rate 36 H Blood Pressure 186/137 H Blood Pressure [Left Arm] Blood Pressure [Right Upper Arm] 142/98 H Pulse Oximetry 95 90 Oxygen Delivery Method Room Air Oxygen Flow Rate 02/18/25 22:45 02/18/25 22:46 02/18/25 23:00 Temperature Pulse Rate 119 H 119 H 118 H Pulse Rate [Pulse Oximeter] Respiratory Rate Blood Pressure 165/108 H Blood Pressure [Left Arm] Blood Pressure [Right Upper Arm] Pulse Oximetry 91 91 90 Oxygen Delivery Method Oxygen Flow Rate 02/18/25 23:01 02/18/25 23:32 02/18/25 23:46 Temperature Pulse Rate 118 H Pulse Rate [Pulse Oximeter] Respiratory Rate Blood Pressure 177/115 H 194/112 H 187/113 H Blood Pressure [Left Arm] Blood Pressure [Right Upper Arm] Pulse Oximetry 93 Oxygen Delivery Method Oxygen Flow Rate 02/18/25 23:59 02/19/25 00:00 02/19/25 00:01 Temperature Pulse Rate 120 H 120 H 117 H Pulse Rate [Pulse Oximeter] Respiratory Rate Blood Pressure 167/80 H Blood Pressure [Left Arm] Blood Pressure [Right Upper Arm] Pulse Oximetry 95 94 95 Oxygen Delivery Method Oxygen Flow Rate 02/19/25 00:02 02/19/25 00:02 02/19/25 00:02 Temperature Pulse Rate 117 H 117 H 117 H Pulse Rate [Pulse Oximeter] Respiratory Rate 38 H 38 H 38 H Blood Pressure 186/134 H 186/134 H 186/134 H Blood Pressure [Left Arm] Blood Pressure [Right Upper Arm] Pulse Oximetry 94 94 94 Oxygen Delivery Method Oxygen Flow Rate 02/19/25 00:03 02/19/25 00:15 02/19/25 00:17 Temperature Pulse Rate 116 H 119 H Pulse Rate [Pulse Oximeter] 106 H Respiratory Rate 44 H 47 H 36 H Blood Pressure Blood Pressure [Left Arm] Blood Pressure [Right Upper Arm] 135/91 H Pulse Oximetry 94 93 94 Oxygen Delivery Method Room Air Oxygen Flow Rate 02/19/25 00:17 02/19/25 00:50 02/19/25 00:53 Temperature Pulse Rate 109 H 99 Pulse Rate [Pulse Oximeter] Respiratory Rate 25 H 38 H 47 H Blood Pressure 135/91 H 158/112 H Blood Pressure [Left Arm] Blood Pressure [Right Upper Arm] Pulse Oximetry 94 94 Oxygen Delivery Method Oxygen Flow Rate 02/19/25 01:00 02/19/25 01:01 02/19/25 01:01 Temperature Pulse Rate 99 101 H 101 H Pulse Rate [Pulse Oximeter] Respiratory Rate 45 H 43 H 43 H Blood Pressure 148/84 H 148/84 H Blood Pressure [Left Arm] Blood Pressure [Right Upper Arm] Pulse Oximetry 94 94 94 Oxygen Delivery Method Oxygen Flow Rate 02/19/25 01:01 02/19/25 01:01 02/19/25 01:15 Temperature Pulse Rate 101 H 101 H 98 Pulse Rate [Pulse Oximeter] Respiratory Rate 43 H 43 H 41 H Blood Pressure 148/84 H 148/84 H Blood Pressure [Left Arm] Blood Pressure [Right Upper Arm] Pulse Oximetry 94 94 95 Oxygen Delivery Method Oxygen Flow Rate 02/19/25 01:17 02/19/25 01:30 02/19/25 01:32 Temperature Pulse Rate 99 Pulse Rate [Pulse Oximeter] Respiratory Rate 42 H 23 43 H Blood Pressure 140/92 H 139/106 H Blood Pressure [Left Arm] Blood Pressure [Right Upper Arm] Pulse Oximetry 95 Oxygen Delivery Method Oxygen Flow Rate 02/19/25 01:33 02/19/25 01:36 02/19/25 01:45 Temperature 99.2 F Pulse Rate 100 Pulse Rate [Pulse Oximeter] Respiratory Rate 49 H 30 H Blood Pressure Blood Pressure [Left Arm] Blood Pressure [Right Upper Arm] Pulse Oximetry 97 Oxygen Delivery Method Oxygen Flow Rate 02/19/25 01:46 02/19/25 02:00 02/19/25 02:01 Temperature Pulse Rate 99 101 H 101 H Pulse Rate [Pulse Oximeter] Respiratory Rate 40 H 31 H 34 H Blood Pressure 122/86 128/81 Blood Pressure [Left Arm] Blood Pressure [Right Upper Arm] Pulse Oximetry 98 93 96 Oxygen Delivery Method Oxygen Flow Rate 02/19/25 02:15 02/19/25 02:16 02/19/25 03:34 Temperature 97.9 F Pulse Rate 101 H 101 H Pulse Rate [Pulse Oximeter] Respiratory Rate 32 H 30 H 26 H Blood Pressure 103/74 Blood Pressure [Left Arm] 114/83 Blood Pressure [Right Upper Arm] Pulse Oximetry 97 97 Oxygen Delivery Method Nasal Cannula Oxygen Flow Rate 3 Hospitalist - H&P: Result Labs Labs: Short CBC 02/18/25 Range/Units 22:03 WBC 13.70 H (4.50-11.00) K/uL Hgb 18.0 H (13.5-17.5) gm/dL Hct 52.2 (37.0-53.0) % Plt Count 261 (140-440) K/uL BMP 02/18/25 22:03 Sodium 139 Potassium 4.5 Chloride 103 Carbon Dioxide 24 BUN 19 Creatinine 1.9 H Glucose 178 H Calcium 9.4 Cardiac Enzymes 02/18/25 Range/Units 22:03 Troponin I < 0.01 (0.01-0.04) ng/mL Liver Function 02/18/25 Range/Units 22:03 Total Bilirubin 1.6 H (0.1-1.5) mg/dL Direct Bilirubin 0.4 (0.0-0.5) mg/dL AST 41 H (12-35) U/L ALT 46 (4-50) U/L Alkaline Phosphatase 111 (40-150) U/L Albumin 4.6 (3.3-5.0) g/dL Urine 02/19/25 Range/Units 00:15 Urine Color Yellow (Yellow) Urine Appearance Clear (Clear) Urine pH 5.5 (5.0-8.5) Ur Specific [place] 1.010 (1.000-1.030) Urine Protein 1+ A (Negative) Urine Glucose (UA) Negative (Negative) Imaging CT Chest/Ab/Pelvis: Radiologist's impression: as per HPI CT scan - chest: Radiologist's impression: as per HPI Assessment and Plan Assessment and plan (1) Pulmonary embolism and infarction: Status: Acute (2) Hypoxia: Status: Acute (3) AAA (abdominal aortic aneurysm): Status: Acute (4) Prediabetes: Status: Acute (5) Alcohol abuse: Status: Acute (6) HTN (hypertension): Status: Acute (7) Hepatitis C: Problem comment: not treated Status: Acute (8) Hyperlipidemia: Status: Acute Plan The patient is a 69-year-old male with a history of chronic hepatitis C which is untreated, hyperlipidemia, hypertension, alcohol abuse, prediabetes. He also says he had a stroke a couple of years ago. His only current medication he is taking is aspirin. For the past 2 days he has been having upper back pain with a pleuritic component. He has been short of breath. In the emergency room he was not hypoxic on room air but was tachycardic and very tachypneic. White blood cell count and D-dimer were elevated. CT of the chest showed multiple right-sided pulmonary emboli with probable pulmonary infarcts. 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 Lower extremity ultrasound was negative for DVT. The ER physician discussed case with an on-call water softener service supervisor and vascular surgeon. They felt that the patient could remain at [place] and be treated with anticoagulation for the PE. The abdominal aortic aneurysm could be addressed as an outpatient. The patient is currently hemodynamically stable and he is not hypoxic on room air. He has been started on IV heparin. Multiple right-sided pulmonary emboli Probable pulmonary infarcts The patient is currently stable and not hypoxic at rest. He is currently on IV heparin. 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 Observe for symptoms of alcohol withdrawal History of stroke Continue aspirin Discuss resuming the statin on his med list that he is not taking History of prediabetes Random glucose was 178. Check hemoglobin A1c Correction scale insulin ordered Hypertension He is not taking the metoprolol on his med list. Monitor blood pressure and resume antihypertensive medications as needed Hyperlipidemia He is currently not taking the atorvastatin which on his med list Discuss resuming it at discharge Chronic hepatitis C Apparently has chronic active hepatitis C but I do not see any relevant lab results and apparently he was never treated. His AST is very slightly elevated otherwise LFTs are normal. Given the pulmonary emboli we can check an alpha-fetoprotein Total Time Spent Total Time Spent: 70 minutes Telehealth: Statement Statement Telehealth Visit: Today's History and Physical is provided via interactive telehealth by Eleazar Nielsen MD.? Patient is located at [facility].? Provider is located at [facility].? Nursing staff assisted with the patient's exam. The visit being done today meets criteria for a telehealth visit and the patient or patient?s parent/guardian is aware the visit is a telehealth visit. Camera Start Time: 04:22 Camera End Time: 04:30
[2025-02-19 07:13] LABS: Hematocrit* 43.6 % (37.0-53.0); Hemoglobin* 14.7 gm/dL (13.5-17.5); Mean Corpuscular HGB Conc 34 gm/dL (32-36); Mean Corpuscular Hemoglobin 32 pg (26-34); Mean Corpuscular Volume 95 fL (80-100); Red Blood Count* 4.61 m/uL (4.30-5.90); White Blood Count* 12.56 K/uL (4.50-11.00)
[2025-02-19 07:14] LABS: Slide Review Reflex No
[2025-02-19 07:23] LABS: INR 1.14 (0.91-1.10); Prothrombin Time 15.4 Seconds
[2025-02-19 07:34] LABS: Lactate* 1.2 mmol/L (0.5-1.9)
--- NOTE | 2025-02-19 08:00 | CRLHL7_ITS ---
For Patients: As a result of the Century Cures Act, medical imaging exams and procedure reports are released immediately into your electronic medical record. You may view this report before your referring provider. If you have questions, please contact your health care provider. INDICATION: Pulmonary embolism. TECHNIQUE: Ultrasound venous duplex bilateral lower extremity. Compression venous exam was performed using reyes-scale, color Doppler, and spectral Doppler imaging. COMPARISON: None. FINDINGS: Deep veins: Sonographic imaging demonstrates the bilateral common femoral, deep femoral, superficial femoral, popliteal, and posterior tibial veins to be fully compressible with normal color Doppler blood flow. Superficial veins: Greater saphenous vein is fully compressible. No popliteal cyst. IMPRESSION: No sign of deep venous thrombosis in the bilateral lower extremities. Dictated by Manuel Moss MD @ 02/19/2025 1:46:34 AM (Electronically Signed)
[2025-02-19] MEDS: cefTRIAXone 2 GM in 0.9 % SODIUM CHLORIDE Mini-bag 100 ML IVPB (08:09)
[2025-02-19] MEDS: ASPIRIN 81 MG TABLET EC PO (08:36)
[2025-02-19] MEDS: AZITHROMYCIN 500 MG in 0.9 % SODIUM CHLORIDE 250 ml 250 ML 255 MG IVPB (08:40)
[2025-02-19] MEDS: HEPARIN 5,000 UNIT/0.5 ML INJ 2800 UNIT IVP (14:13)
[2025-02-19] MEDS: IPRAT-ALBUT 0.5-2.5 MG/3 ML NEB 1 NEB IH (14:13)
--- NOTE | 2025-02-19 14:19 | RESP.RT ---
Patient lying in bed HOB up slightly, On NC 2 Lpm, SaO2 86-92%, Respiratory rate 24/minute. BBS with audible grunting end inspiratory, starting expiratory cycles, Shallow breathing, not wheeze noted, bases more diminished. DuoNeb given with Mouth piece, small volume nebulizer and Oxygen flow meter @7 Lpm. Patient tolerated well. Post treatment, grunting had diminished slightly, patient is able to take larger breath, and stated so. Labored breathing is improved slightly also. Rate remains at 24/minute, SaO2 92-93%.
[2025-02-19 14:32] LABS: Cannabinoid Screen Urine Negative (Negative); Methamphetamines Screen Urine POSITIVE (Negative); Tricyclic Antidepressant Urine Negative (Negative)
--- NOTE | 2025-02-19 15:37 | PM.DST ---
Transfer Discharge Sum: Prov Provider Date Seen: 03/16/25 Date of admission: 02/19/25 01:58 Primary care physician: Elsa José PA-C Attending physician on discharge: Adrienne Andrews Discharging clinician: Adrienne Andrews Anticipated date of transfer: 02/19/25 Receiving physician/facility: Dr. Rajesh AC DS: Diagnosis Discharge Diagnosis (1) Pulmonary embolism and infarction: Status: Acute Problem details: - extensive right-sided PEs with evidence of right heart strain, right and middle lower lobe opacities concerning for developing pulmonary infarcts - negative lower extremity venous Dopplers bilaterally - nonsmoker, no recent travel, no recent surgery, not up-to-date on age-appropriate cancer screenings (2) Hypoxia: Status: Acute Problem details: - requiring up to 3L per nasal cannula with tachypnea (RR up to 36) on 02/09/25 (3) AAA (abdominal aortic aneurysm): Status: Acute Problem details: - formal radiology read of CT 02/19: 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.6 cm - vascular surgery consulted by phone, felt that this was likely not acute (4) Prediabetes: Status: Acute (5) Alcohol abuse: Status: Acute Problem details: - per history, currently only drinking 2-3 times/month (6) Hepatitis C: Status: Acute Problem details: - never treated per report Transfer Discharge Sum: Med Medications Active and Home Medications: Home Medications aspirin 81 mg tablet,delayed release 81 mg PO QDAY 10/30/23 [History Confirmed 02/18/25] Active Medications Acetaminophen (Acetaminophen 325 Mg Tablet) 650 - 975 mg PO Q6H PRN PRN Reason: Pain Albuterol/Ipratropium (Iprat-Albut 0.5-2.5 Mg/3 Ml Neb) 1 neb IH Q2H PRN Last Admin: 02/19/25 14:13 Dose: 1 neb Aspirin (Aspirin 81 Mg Tablet Ec) 81 mg PO DAILY YELENA Last Admin: 02/19/25 08:36 Dose: 81 mg Bisacodyl (Bisacodyl 10 Mg Supp.Rect) 10 mg UT DAILY PRN Heparin Sodium/Dextrose (Heparin) 25,000 unit in 500 mls @ 0 mls/hr IV .Q0M YELENA; Protocol Last Titration: 02/19/25 14:13 Dose: 1,100 unit/hr, 22 mls/hr Sodium Chloride (0.9 % Sodium Chloride 1000 Ml) 1,000 mls @ 100 mls/hr IV .Q10H [facility] Last Admin: 02/19/25 08:08 Dose: 100 mls/hr Ceftriaxone Sodium 2 gm/ (Sodium Chloride) 100 mls @ 200 mls/hr IVPB Q24H [facility] Last Infusion: 02/19/25 08:45 Dose: Infused Azithromycin 500 mg/ Sodium (Chloride) 255 mls @ 255 mls/hr IVPB Q24H [facility] Last Infusion: 02/19/25 09:40 Dose: Infused Insulin Aspart (Insulin Aspart 100 Unit/Ml) 0 unit [facility]UT [facility]; Protocol Last Admin: 02/19/25 12:34 Dose: Not Given Morphine Sulfate (Morphine 4 Mg/Ml Inj) 4 mg IVP Q4H PRN Ondansetron HCl (Ondansetron Odt 4 Mg Tab) 4 mg PO Q6H PRN Oxycodone HCl (Oxycodone 5 Mg Tablet) 2.5 - 5 mg PO Q4H PRN Last Admin: 02/19/25 12:54 Dose: 5 mg Senna/Docusate Sodium (Sennosides/Docusate Tablet) 1 tab PO DAILY PRN Sodium Chloride (Sodium Chloride 0.9 % (Flush) 10 Ml Syringe) 5 ml IVF .FLUSH PRN Sodium Chloride (Sodium Chloride 0.9 % (Flush) 10 Ml Syringe) 5 ml IVF BID [facility] Last Admin: 02/19/25 08:36 Dose: Not Given Tramadol HCl (Tramadol Hcl 50 Mg Tablet) 50 - 100 mg PO Q6H PRN Transfer Discharge Sum: Hosp Hospital Course Hospital course: Myron Rivas is a 69 year old male who was admitted to the hospital with chest pain in the setting of right sided PEs with large clot burden concern for right heart strain. Imaging in the ER also notable for possible thrombosed dissection of abdominal aorta; vascular surgery consulted from the ER in felt that this was likely chronic and stable. Heparin drip initiated upon arrival to the floor. Lower extremity venous Dopplers negative bilaterally. Also noted to have likely GLYNN with a creatinine of 1.9 (unknown baseline, but had a creatinine here of 1.4 in 2023), + methamphetamine on U tox. Throughout the day, patient was moved to our CCU as he became more hypoxic with an oxygen requirement of 2-3 L at rest. He also had increased tachypnea with respiratory rate up to 36. HR 90-100, no concerning hypotension, but blood pressure lower than baseline throughout the day (120-130 systolic, presented with SBP of 194). TTE obtained with the below results. Given patient's worsening clinical status, hypoxia, abnormal TTE, and other incidental findings on imaging; felt that he was an appropriate patient to transfer to a higher level of care with specialty services available. Acceted by Dr. Mena at [facility] for transfer on 02/19/25 by Ambulance. Final Impressions: 1. Normal LV size, mildly increased wall thickness, EF of 60 - 65%. 2. Normal RV size, normal systolic function. 3. The aortic valve is normal and trileaflet, no stenosis and probably moderate regurgitation. 4. Unable to estimate PA and RA pressures. 5. Severely dilated ascending aorta, diameter of 4.9 cm (upper limit of normal for age, sex, and BSA is 4.2 cm*), Height Index 2.72. Time Spent with Patient Time attestation: Total time spent providing and/or coordinating transfer services: Total time spent: Greater than 30 minutes Exam Narrative: Exam Narrative: GEN: Laying in bed and wearing supplemental oxygen, appears uncomfortable but not toxic HEENT: EOMIs bilaterally, no scleral icterus, + pallor CV: RRR, No concerning murmurs R: Decreased bibasilar lung sounds Ext: wwp, no concerning edema Skin: No concerning skin lesions or rashes on exposed skin Neuro: Nonfocal Psych: Appropriate Const: Vital Signs, click to edit/add: Vital Signs - 24 hr 02/18/25 20:55 02/18/25 22:17 02/18/25 22:33 Temperature 100.4 F H Pulse Rate 120 H Pulse Rate [Left P ulse Oximeter] Pulse Rate [Pulse Oximeter] 112 H Respiratory Rate 36 H Blood Pressure 186/137 H Blood Pressure [Le ft Arm] Blood Pressure [Ri ght Upper Arm] 142/98 H Pulse Oximetry 95 90 Oxygen Delivery Me thod Room Air Oxygen Flow Rate 02/18/25 22:45 02/18/25 22:46 02/18/25 23:00 Temperature Pulse Rate 119 H 119 H 118 H Pulse Rate [Left P ulse Oximeter] Pulse Rate [Pulse Oximeter] Respiratory Rate Blood Pressure 165/108 H Blood Pressure [Le ft Arm] Blood Pressure [Ri ght Upper Arm] Pulse Oximetry 91 91 90 Oxygen Delivery Me thod Oxygen Flow Rate 02/18/25 23:01 02/18/25 23:32 02/18/25 23:46 Temperature Pulse Rate 118 H Pulse Rate [Left P ulse Oximeter] Pulse Rate [Pulse Oximeter] Respiratory Rate Blood Pressure 177/115 H 194/112 H 187/113 H Blood Pressure [Le ft Arm] Blood Pressure [Ri ght Upper Arm] Pulse Oximetry 93 Oxygen Delivery Me thod Oxygen Flow Rate 02/18/25 23:59 02/19/25 00:00 02/19/25 00:01 Temperature Pulse Rate 120 H 120 H 117 H Pulse Rate [Left P ulse Oximeter] Pulse Rate [Pulse Oximeter] Respiratory Rate Blood Pressure 167/80 H Blood Pressure [Le ft Arm] Blood Pressure [Ri ght Upper Arm] Pulse Oximetry 95 94 95 Oxygen Delivery Me thod Oxygen Flow Rate 02/19/25 00:02 02/19/25 00:02 02/19/25 00:02 Temperature Pulse Rate 117 H 117 H 117 H Pulse Rate [Left P ulse Oximeter] Pulse Rate [Pulse Oximeter] Respiratory Rate 38 H 38 H 38 H Blood Pressure 186/134 H 186/134 H 186/134 H Blood Pressure [Le ft Arm] Blood Pressure [Ri ght Upper Arm] Pulse Oximetry 94 94 94 Oxygen Delivery Me thod Oxygen Flow Rate 02/19/25 00:03 02/19/25 00:15 02/19/25 00:17 Temperature Pulse Rate 116 H 119 H Pulse Rate [Left P ulse Oximeter] Pulse Rate [Pulse Oximeter] 106 H Respiratory Rate 44 H 47 H 36 H Blood Pressure Blood Pressure [Le ft Arm] Blood Pressure [Ri ght Upper Arm] 135/91 H Pulse Oximetry 94 93 94 Oxygen Delivery Me thod Room Air Oxygen Flow Rate 02/19/25 00:17 02/19/25 00:50 02/19/25 00:53 Temperature Pulse Rate 109 H 99 Pulse Rate [Left P ulse Oximeter] Pulse Rate [Pulse Oximeter] Respiratory Rate 25 H 38 H 47 H Blood Pressure 135/91 H 158/112 H Blood Pressure [Le ft Arm] Blood Pressure [Ri ght Upper Arm] Pulse Oximetry 94 94 Oxygen Delivery Me thod Oxygen Flow Rate 02/19/25 01:00 02/19/25 01:01 02/19/25 01:01 Temperature Pulse Rate 99 101 H 101 H Pulse Rate [Left P ulse Oximeter] Pulse Rate [Pulse Oximeter] Respiratory Rate 45 H 43 H 43 H Blood Pressure 148/84 H 148/84 H Blood Pressure [Le ft Arm] Blood Pressure [Ri ght Upper Arm] Pulse Oximetry 94 94 94 Oxygen Delivery Me thod Oxygen Flow Rate 02/19/25 01:01 02/19/25 01:01 02/19/25 01:15 Temperature Pulse Rate 101 H 101 H 98 Pulse Rate [Left P ulse Oximeter] Pulse Rate [Pulse Oximeter] Respiratory Rate 43 H 43 H 41 H Blood Pressure 148/84 H 148/84 H Blood Pressure [Le ft Arm] Blood Pressure [Ri ght Upper Arm] Pulse Oximetry 94 94 95 Oxygen Delivery Me thod Oxygen Flow Rate 02/19/25 01:17 02/19/25 01:30 02/19/25 01:32 Temperature Pulse Rate 99 Pulse Rate [Left P ulse Oximeter] Pulse Rate [Pulse Oximeter] Respiratory Rate 42 H 23 43 H Blood Pressure 140/92 H 139/106 H Blood Pressure [Le ft Arm] Blood Pressure [Ri ght Upper Arm] Pulse Oximetry 95 Oxygen Delivery Me thod Oxygen Flow Rate 02/19/25 01:33 02/19/25 01:36 02/19/25 01:45 Temperature 99.2 F Pulse Rate 100 Pulse Rate [Left P ulse Oximeter] Pulse Rate [Pulse Oximeter] Respiratory Rate 49 H 30 H Blood Pressure Blood Pressure [Le ft Arm] Blood Pressure [Ri ght Upper Arm] Pulse Oximetry 97 Oxygen Delivery Me thod Oxygen Flow Rate 02/19/25 01:46 02/19/25 02:00 02/19/25 02:01 Temperature Pulse Rate 99 101 H 101 H Pulse Rate [Left P ulse Oximeter] Pulse Rate [Pulse Oximeter] Respiratory Rate 40 H 31 H 34 H Blood Pressure 122/86 128/81 Blood Pressure [Le ft Arm] Blood Pressure [Ri ght Upper Arm] Pulse Oximetry 98 93 96 Oxygen Delivery Me thod Oxygen Flow Rate 02/19/25 02:15 02/19/25 02:16 02/19/25 03:34 Temperature 97.9 F Pulse Rate 101 H 101 H Pulse Rate [Left P ulse Oximeter] Pulse Rate [Pulse Oximeter] Respiratory Rate 32 H 30 H 26 H Blood Pressure 103/74 Blood Pressure [Le ft Arm] 114/83 Blood Pressure [Ri ght Upper Arm] Pulse Oximetry 97 97 Oxygen Delivery Me thod Nasal Cannula Oxygen Flow Rate 3 02/19/25 03:34 02/19/25 04:46 02/19/25 07:00 Temperature Pulse Rate Pulse Rate [Left P ulse Oximeter] Pulse Rate [Pulse Oximeter] Respiratory Rate 26 H 22 Blood Pressure Blood Pressure [Le ft Arm] Blood Pressure [Ri ght Upper Arm] Pulse Oximetry 95 95 96 Oxygen Delivery Me thod Nasal Cannula Room Air Oxygen Flow Rate 3.5 3 02/19/25 07:00 02/19/25 07:00 02/19/25 07:45 Temperature 97.3 F L Pulse Rate 84 Pulse Rate [Left P ulse Oximeter] 81 81 Pulse Rate [Pulse Oximeter] Respiratory Rate 22 22 Blood Pressure Blood Pressure [Le ft Arm] 128/87 Blood Pressure [Ri ght Upper Arm] Pulse Oximetry 96 Oxygen Delivery Me thod Nasal Cannula Oxygen Flow Rate 3 02/19/25 11:00 02/19/25 14:16 Temperature 97.5 F L Pulse Rate Pulse Rate [Left P ulse Oximeter] 81 Pulse Rate [Pulse Oximeter] Respiratory Rate 18 24 Blood Pressure Blood Pressure [Le ft Arm] 136/81 Blood Pressure [Ri ght Upper Arm] Pulse Oximetry 95 90 Oxygen Delivery Me thod Nasal Cannula Nasal Cannula Oxygen Flow Rate 2 2 Discharge Plan Discharge Disposition: [facility] Date of Admission: 02/19/25 01:58 Attending Provider on Discharge: Adrienne Andrews Primary Care Provider: Elsa José Discharge Orders: Transfer of Care to Other Hospital (ORDER); Ordered 02/19/25 Ordered By: Adrienne Andrews Oxygen: Yes Oxygen Delivery Method: Nasal Cannula Oxygen Flow Rate: 3L Services not available here: Cardiology, Critical Care, Vascular Surgery
--- NOTE | 2025-02-19 15:54 | PC.NURSE ---
End of Shift: Patient pleasant and cooperative, A&O. SpO2 maintained above 90% on 2-3L O2 throughout the shift, continued encouraging deep breaths. Pt reports right sided back pain that worsened with deep breaths, managed with PRN medication, see MAR. Tolerating regular diet, denies nausea. Pt reports increased SOB at rest this afternoon, notified, RT consulted. Pt refused to get up out of bed this shift. Transferred to CCU, report given to SREEKANTH Estes.
--- NOTE | 2025-02-19 16:20 | PC.NURSE ---
Discharge: patient discharged to [facility] at 1620. Nurse to Nurse given. Paperwork signed.
== END 2025-02-19 16:00 | disposition short-term general hospital (02) | DRG 175 ==
LOC: ED 02-19 01:58 → MEDSURG 02-19 03:31
PROVIDERS: Family Medicine; Admitting Provider Internal Medicine; Emergency Provider Family Medicine; PCP Physician Assistant Medical; Visit Provider Internal Medicine
DX: I26.94 Multiple subsegmental thrombotic pulmonary emboli without acute cor pulmonale (principal); I71.02 Dissection of abdominal aorta; Z59.01 Sheltered homelessness; R09.02 Hypoxemia; B18.2 Chronic viral hepatitis C; R73.03 Prediabetes; I71.40 Abdominal aortic aneurysm, without rupture, unspecified; Z59.82 Transportation insecurity; F10.10 Alcohol abuse, uncomplicated; Z79.82 Long term (current) use of aspirin; I10 Essential (primary) hypertension; E78.5 Hyperlipidemia, unspecified; F15.91 Other stimulant use, unspecified, in remission; Z87.891 Personal history of nicotine dependence; Z86.73 Personal history of transient ischemic attack (TIA), and cerebral infarction without residual deficits
CPT/HCPCS: 36415; 71045; 71275; 74174; 80053; 80306; 81001; 82077; 82105; 82248; 82803; 82962; 83036; 83605; 83690; 83735; 83880; 84484; 85025; 85027; 85379; 85610; 85730; 86140; 87040; 87631; 93005; 93306; 93970; 94640; 94761; 99285; A9270; J0456; J0696; J1644; J2543; J3010; J7030; J7050; Q9967

== ENCOUNTER 2025-02-19 16:11 | Outpatient (CLI) | payer MEDICARE, SELFPAY | END 2025-02-19 16:13 | disposition home or self-care (01) | LOC: AMB 02-28 13:10 | PROVIDERS: PCP Physician Assistant Medical; Visit Provider Family Medicine | DX: I26.99 Other pulmonary embolism without acute cor pulmonale (principal); I71.40 Abdominal aortic aneurysm, without rupture, unspecified | CPT/HCPCS: A0425; A0434 ==